=== PATIENT | male | born 1960 | race Caucasian/White ===

== ENCOUNTER 2021-03-26 07:48 | Outpatient (RCR) | payer MEDICAID, SELFPAY | END 2021-04-16 10:19 | disposition home or self-care (01) | LOC: HO.PT 07:48 | PROVIDERS: PCP General Practice; Visit Provider General Practice | DX: M54.5 Low back pain (principal) | CPT/HCPCS: 97110; 97162 ==

== ENCOUNTER 2021-07-23 09:02 | Outpatient (REF) | payer MEDICAID, SELFPAY ==
--- NOTE | ~2021-07-23 | XR_ITS ---
EXAMINATION: XR SHOULDER, LEFT CLINICAL INFORMATION: Fall COMPARISON: None TECHNIQUE: AP external rotation, Grashey, scapular Y, and axillary views of the left shoulder. FINDINGS: The bones and soft tissues are normal. No fracture. Glenohumeral and acromioclavicular alignment is anatomic with normal joint space. No abnormal soft tissue calcifications. XR/XR shoulder LT min 2V IMPRESSION: Normal left shoulder.
--- NOTE | ~2021-07-23 | XR_ITS ---
EXAMINATION: XR KNEE, LEFT CLINICAL INFORMATION: Pain post fall COMPARISON: Previous x-ray August 2019 TECHNIQUE: Four views of the left knee. FINDINGS: Bones and soft tissues are normal. No fracture or joint effusion. Alignment is anatomic. Joint spaces are well maintained. No abnormal soft tissue calcification. XR/XR knee LT 4V IMPRESSION: Normal left knee.
--- NOTE | ~2021-07-23 | XR_ITS ---
EXAMINATION: XR LUMBOSACRAL SPINE CLINICAL INFORMATION: Fall COMPARISON: None TECHNIQUE: Three views of the lumbosacral spine. FINDINGS: There is curvature of the lumbar spine to the left and exaggerated lumbar lordosis. Bone alignment is otherwise normal. No fracture or dislocation is seen. There is degenerative spondylosis of the lower thoracic and upper lumbar spine. There is lower lumbar spine facet arthritis. XR/XR lumbar spine 2-3V IMPRESSION: Scoliosis and degenerative changes. No fracture seen.
== END 2021-07-23 09:03 | disposition home or self-care (01) ==
LOC: HO.XRAY 09:02
PROVIDERS: PCP General Practice; Visit Provider Internal Medicine
DX: M25.512 Pain in left shoulder (principal); M25.562 Pain in left knee; M25.50 Pain in unspecified joint; Z91.81 History of falling
CPT/HCPCS: 72100; 73030; 73564